=== PATIENT | female | born 1945 | race Caucasian/White ===

== ENCOUNTER → 2017-10-08 | Outpatient (CLI) | payer MEDICARE ==
[~2017-10-08] MED LIST: ASPIRIN325 PO; C-500500 MG PO; CALTRATE PLUS1 EACH PO; CARVEDILOL12.5 MG PO; CIPRO500 MG PO; FLAGYL500 MG PO; KLOR-CON 1010 MEQ PO; LASIX 20 MG TAB20 MG PO; LIORESAL 10 MG10 MG PO; LISINOPRIL10 MG PO; LISINOPRIL40 MG PO; METOPROLOL SUC100 MG PO; MIRALAX17 GM PO; NEURONTIN 300300 M1 PO; PLAVIX 75 MG TA75 M1 PO; PRILOSEC; PRILOSEC OTC20 MG PO; PRILOSEC20 MG PO; SIMVASTATIN20 MG PO; carvedilol
== END ==
LOC: M.ULTRA 08:00
DX: N28.1 Cyst of kidney, acquired (principal); I77.811 Abdominal aortic ectasia; D73.4 Cyst of spleen; K80.80 Other cholelithiasis without obstruction; I25.10 Atherosclerotic heart disease of native coronary artery without angina pectoris; I10 Essential (primary) hypertension; E78.2 Mixed hyperlipidemia; K57.92 Diverticulitis of intestine, part unspecified, without perforation or abscess without bleeding

== ENCOUNTER → 2017-11-29 | Outpatient (CLI) | payer MEDICARE | LOC: M.RAD 11-01 13:30 | DX: M81.0 Age-related osteoporosis without current pathological fracture (principal); I25.10 Atherosclerotic heart disease of native coronary artery without angina pectoris; I10 Essential (primary) hypertension; Z78.0 Asymptomatic menopausal state ==

== ENCOUNTER → 2017-12-15 | Outpatient (CLI) | payer MEDICARE ==
--- NOTE | 2017-12-22 07:59 | PAINCON ---
[address] [address] PAIN MANAGEMENT CONSULTATION Name: KEYANA SALGADO [id number] Admission: 12/15/17 Attend Phys: Tulio Charles Discharge: Date of : 47 Report #: [id number] THIS REPORT FOR: //name// CC: Adriana Lerner REFERRING PHYSICIAN: Adriana Quijano MD, [facility] The patient is a very pleasant 72-year-old female seen in consultation at the request of Dr. Wright for assistance with management of low back pain, right hip and leg. Chronic for greater than a year without antecedent trauma and overuse. The patient does note that she had had prior decompressive laminectomy and fusion at L4-L5 and L5-S1 back in 1996 with excellent improvement in back pain. Pain has begun to recur in the last year. It seems to have gotten worse this past fall with increased activity, but no trauma. Currently, she notes the pain is in the right leg radiating down to the foot. Does have numbness and paresthesia that started in the fall. Again pain has been present for about a year. Denies saddle anesthesia. Denies bowel or bladder continence changes. 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 Pain does seem to be exacerbated with increased activity. She gets some relief with heat and ice and lying recumbent. The patient has tried baclofen with really no efficacy and she discontinued it. She has been taking gabapentin for about 4 years for some chronic paresthesia. Anti-inflammatory medications are relatively contraindicated due to the history of coronary artery disease. She is not on any blood thinners. She notes pain is shooting, aching, intermittent, throbbing and sharp, rates it anywhere from 7-10 on visual analog scale. REVIEW OF SYSTEMS: Complete review of systems is attached to chart and gone over with the patient. She is . She does not smoke or drink alcohol to excess. History of hypertension and treated with carvedilol and lisinopril. Currently on simvastatin, she denies significant elevated cholesterol, simply started on this after her coronary artery disease. She had endovascular stents placed in 1997. Again she was on blood thinners for a period of time, but now she uses only a single daily aspirin. History of hypothyroidism, gastroesophageal reflux and some peripheral neuropathy in the bilateral legs for which she uses gabapentin. Prior surgeries have included the aforementioned lumbar decompressive laminectomy and fusion in 1996, prior hysterectomy in 1976 and some podiatric surgery in 1978. She continues to work cleaning houses. Pain impact score is fairly high, averaging about 52/70. She has some increasing left [place] [address] PAIN MANAGEMENT CONSULTATION Name: NAOMI,KEYANA Jordyn Room: [facility]#: [id number] Admission: 12/15/17 Attend Phys: Tulio Charles Discharge: Date of : 47 Report #: [id number] she uses a Salonpas patch with good efficacy. PHYSICAL EXAMINATION: GENERAL: Reveals a 5 feet 1 inch, 187 pounds female, BMI is 35 kilograms per meter squared. VITAL SIGNS: Blood pressure 148/74, pulse 48 and respirations 16. NEUROLOGIC: Cranial nerves 2-12 are grossly intact. HEENT: Pupils are equal and react to light and accommodation. Extraocular muscles are intact. NECK: Thyroid is unremarkable. Upper extremity strength is generally preserved. Does have some tenderness in the left thoracic paravertebral muscles. HEART: Regular rhythm without murmur. LUNGS: Clear to auscultation. ABDOMEN: Shows endomorphic build. MUSCULOSKELETAL: Rises from chair using armrest. She has a catch in the low back radiating into the right hip. Gait is tandem. Lumbar flexion good to about 90 degrees. No SI joint tenderness is noted. She has pain with right hip flexion. Strength is slightly diminished. Absent right patellar reflex, 2/4 in the left. Lower extremity strength is otherwise symmetric for dorsiflexion, plantar flexion and lower extremity extension. DIAGNOSTIC STUDIES: Include MRI of the lumbar spine from 11/29/2017 noting a 0.6 cm anterolisthesis at L3-L4 with neural foraminal and central spinal stenosis. She does have postoperative surgical changes of laminectomy and fusion at L4-L5 and L5-S1. She does have a component of lumbar spondylosis as well. ASSESSMENT: Symptomatic lumbar radiculopathy by clinical exam and history, status post decompressive laminectomy, symptoms primarily right L3 distribution. RECOMMENDATIONS: 1. Right L3-L4 transforaminal epidural injection. 2. Physical therapy ongoing. 3. Continue Aleve [id number], p.r.n. use is acceptable. We did review overall risk of chronic use of NSAID agents and coronary artery disease and increased risk for heart attack. We did attempt a transforaminal epidural injection; however, unable to get good access due to osseous hypertrophy in this area. We ultimately progressed with a midline lumbar epidural injection under fluoroscopy. PROCEDURE: Midline lumbar epidural injection under fluoroscopy. PROCEDURE NOTE: After both written and informed consent to include risk of spinal cord damage, increased pain, weakness and dural puncture, the patient was [facility] [address] [place] [address] PAIN MANAGEMENT CONSULTATION Name: KEYANA SALGADO Room: [facility]#: [id number] Admission: 12/15/17 Attend Phys: Tulio Charles Discharge: Date of : 46 Report #: [id number] taken to the fluoroscopy suite, placed in the prone position. After sterile prep and drape, a skin wheal with lidocaine was raised. A 22-gauge epidural Tuohy needle was inserted in the midline at L3-L4 with good loss to resistance. Negative aspiration for cerebrospinal fluid or blood was noted. Then 1 mL of Omnipaque under biplanar fluoroscopy showed good spread within the epidural space. This was followed with 80 mg of triamcinolone plus 1 mL of 1.5% preservative-free Xylocaine, 0.5 mL Xylocaine was then injected to flush the needle; it was removed. The patient was monitored for an appropriate period of time and discharged in good and stable condition. <ELECTRONICALLY SIGNED> By: Sandip Lerner DO 12/22/17 0759 1401 [id number] Lerner DO /nt
== END | disposition home or self-care (01) ==
LOC: M.PC 04:52
DX: M54.16 Radiculopathy, lumbar region (principal); G89.29 Other chronic pain; I10 Essential (primary) hypertension; I25.10 Atherosclerotic heart disease of native coronary artery without angina pectoris; E03.9 Hypothyroidism, unspecified; K21.9 Gastro-esophageal reflux disease without esophagitis; F41.8 Other specified anxiety disorders; Z98.890 Other specified postprocedural states; Z90.710 Acquired absence of both cervix and uterus; Z79.82 Long term (current) use of aspirin; Z79.899 Other long term (current) drug therapy

== ENCOUNTER → 2018-01-05 | Outpatient (CLI) | payer MEDICARE ==
--- NOTE | 2018-01-07 09:51 | PAINCON ---
[address] [address] PAIN MANAGEMENT CONSULTATION Name: KEYANA SALGADO [id number] Admission: 01/05/18 Attend Phys: Tulio Charles Discharge: Date of : 46 Report #: [id number] THIS REPORT FOR: //name// CC: Samm Lerner HISTORY OF PRESENT ILLNESS: The patient is a 72-year-old female seen in consultation on 12/15/2017, diagnosed with symptomatic lumbar radiculopathy secondary to spinal stenosis. We proceeded with a single lumbar epidural injection at that time with incremental improvement of baseline pain. The patient notes she had near 100% relief for several weeks with pain began to recur yesterday. She notes pain is in the low back, right hip and leg. She rates pain at 0 on VAS sitting today, but it was up to 10 within the past week. PHYSICAL EXAMINATION: Shows a 72-year-old female, BMI is 36.2 kilograms per meter squared. Blood pressure 150/74, pulse 47, respirations of 18. Rises from chair using armrest. Modestly antalgic gait. Still has slight decreased right hip flexion strength and positive straight leg raise on the right. ASSESSMENT: Symptomatic lumbar radiculopathy by clinical exam and history. RECOMMENDATIONS: Repeat epidural injection under fluoroscopy today. Given the good relief following first injection, we will not make a followup appointment. ASSESSMENT: Symptomatic lumbar radiculopathy. PROCEDURE: Lumbar epidural injection under fluoroscopy. PROCEDURE NOTE: After both written and informed consent to include risk of spinal cord damage, increased pain, weakness and dural puncture, the patient was taken to the fluoroscopy suite, placed in the prone position. After sterile prep and drape, a skin wheal with lidocaine was raised. A 22-gauge epidural Tuohy needle was inserted in the midline at L3-L4 with good loss to resistance. Negative aspiration for cerebrospinal fluid or blood was noted. Then 1 mL of Omnipaque under biplanar fluoroscopy showed good spread within the epidural space. This was followed with 80 mg of triamcinolone plus 1 mL of 1.5% preservative-free Xylocaine, 0.5 mL Xylocaine was then injected to flush the needle; it was removed. The patient was monitored for an appropriate period of time and discharged in good and stable condition. <ELECTRONICALLY SIGNED> By: Sandip Lerner DO 01/07/18 0951 1539 2004Sandip Lerner DO /nt
== END | disposition home or self-care (01) ==
LOC: M.PC 02:28
DX: M54.16 Radiculopathy, lumbar region (principal); M48.061 Spinal stenosis, lumbar region without neurogenic claudication; I10 Essential (primary) hypertension; F41.8 Other specified anxiety disorders; Z79.82 Long term (current) use of aspirin; Z79.899 Other long term (current) drug therapy; Z98.890 Other specified postprocedural states

== ENCOUNTER → 2018-01-26 | Outpatient (CLI) | payer MEDICARE ==
--- NOTE | 2018-01-29 09:57 | PAINCON ---
[facility] [address] [place] [address] PAIN MANAGEMENT CONSULTATION Name: KEYANA SALGADO [id number] Admission: 01/26/18 Attend Phys: Tulio Charles Discharge: Date of : 47 Report #: [id number] THIS REPORT FOR: //name// CC: Samm Lerner The patient is a very pleasant 73-year-old female prior seen in the pain clinic on 01/02/2018. We had done two lumbar epidural injections, initial injection at L4-L5 afforded good relief. Second injection was actually at L3-L4 a little bit above that with less efficacy. She returns to the pain clinic today noting pain continues to be problematic. She rates her pain 8 on a VAS. Pain is low back, right hip and leg. Pain is exacerbated with standing, walking and bending. PHYSICAL EXAMINATION: Unchanged otherwise, 5 feet 1 inch, weight of 186 pounds, BMI 35 kilograms per meter squared. Blood pressure 153/74, pulse 47 and respirations 16. Rises from chair using armrest. Diffuse tenderness across the low back. Lower extremity strength is symmetric. Lumbar flexion is limited. ASSESSMENT: Symptomatic lumbar radiculopathy secondary to spinal stenosis in a patient who has had good relief with two injections and better relief with her first injection. RECOMMENDATIONS: Discussion with the patient today about therapeutic option. We elected to repeat injection today. This will be #3 in a series. We will go back to the lower L4-L5 area. If this did not afford adequate relief, I would consider a caudal injection at next visit. The patient has significant lumbar stenosis and a fair bit of osseous deformity and autofusion in the low back. PROCEDURE: Lumbar epidural injection under fluoroscopy. PROCEDURE NOTE: After both written and informed consent to include risk of spinal cord damage, increased pain, weakness and dural puncture, the patient was taken to the fluoroscopy suite, placed in the prone position. After sterile prep and drape, a skin wheal with lidocaine was raised. A 22-gauge epidural Tuohy needle was inserted in the midline at L4-L5 with good loss to resistance. Negative aspiration for cerebrospinal fluid or blood was noted. Then 1 mL of Omnipaque under biplanar fluoroscopy showed good spread within the epidural space. This was followed with 80 mg of triamcinolone plus 1 mL of 1.5% preservative-free Xylocaine, 0.5 mL Xylocaine was then injected to flush the needle; it was removed. The patient was monitored for an appropriate period of time and discharged in good and stable condition. <ELECTRONICALLY SIGNED> By: Sandip Lerner DO 01/29/18 0957 1202 [id number] Lerner DO /nt
== END | disposition home or self-care (01) ==
LOC: M.PC 02:55
DX: M48.061 Spinal stenosis, lumbar region without neurogenic claudication (principal); G89.29 Other chronic pain; I10 Essential (primary) hypertension; F41.9 Anxiety disorder, unspecified; Z79.899 Other long term (current) drug therapy; Z79.82 Long term (current) use of aspirin; Z98.890 Other specified postprocedural states

== ENCOUNTER → 2019-01-13 | Outpatient (CLI) | payer MEDICARE | LOC: M.RAD 08:50 | DX: Z12.31 Encounter for screening mammogram for malignant neoplasm of breast (principal) ==

== ENCOUNTER → 2020-04-24 | Outpatient (CLI) | payer MEDICARE | LOC: M.RAD 10:30 | PROVIDERS: ATTEND Family Medicine | DX: Z12.31 Encounter for screening mammogram for malignant neoplasm of breast (principal) ==

== ENCOUNTER 2021-04-18 09:20 | Inpatient (IN) | payer OTHER ==
[~2021-04-18] VITALS: Ht 160 cm; Wt 91.4 kg
[~2021-04-18 09:20] MED LIST changes: -NEURONTIN 300300 M1 PO; +NEURONTIN 300M300 M2 PO
[2021-04-18] MEDS ORDERED: ASA81BEC PO (09:26)
[2021-04-18 09:49] LABS: ABSOLUTE EOSINOPHILS 0.1 thou/uL (0.0-0.7); ABSOLUTE LYMPHOCYTES 1.6 thou/uL (0.8-5.3); ABSOLUTE MONOCYTES 0.3 thou/uL (0.0-1.2); ABSOLUTE NEUTROPHILS 3.6 thou/uL (1.6-8.1); BASOPHILS 0.5 %; EOSINOPHILS 1.4 %; HEMOGLOBIN 9.8 gm/dL (12.0-15.0); LYMPHOCYTES 28.1 %; MCH 31.8 pg (26.0-34.0); MCHC 33.9 g/dL (28.0-37.0); MCV 93.7 fL (80.0-100.0); MONOCYTES 5.9 %; NUCLEATED RBCS 0 /100WBC; PLATELET COUNT* 225 thou/uL (150-400); POLYS 64.1 %; RDW-CV 13.4 % (10.5-14.5); WBC 5.7 thou/uL (4.0-11.0)
[2021-04-18 10:01] LABS: CREATININE 0.9 mg/dL (0.6-1.3); POTASSIUM 4.1 mmol/L (3.5-5.1)
[2021-04-18 10:06] LABS: TOTAL BILIRUBIN 0.3 mg/dL (<0.1-1.0); TOTAL PROTEIN 5.9 g/dL (6.4-8.2)
[2021-04-18 13:00] VITALS: BP 152/79
--- NOTE | 2021-04-18 15:56 | EKG ---
[place] [address] ELECTROCARDIOGRAM REPORT Name: KEYANA SALGADO Room: [address] ADM IN .R.#: [id number] Admission: 04/18/21 Attend Phys: Dion Silver, Discharge: Date of : 47 Date of Service: 04/18/21 0925 Report #: [id number] THIS REPORT FOR: //name// [facility] ED Test Date: 2021-04-18 Test Time: 09:25:10 Pat Name: KEYANA SALGADO Department: Room: [facility] Gender: F Regulatory Technician: YVAN : 1945 Requested By: Boy Mane Order Number: [id number] MD: Hubert Puentes Measurements Intervals [place] Rate: 84 P: 43 NC: 173 QRS: -5 QRSD: 98 T: 149 QT: 357 QTc: 422 Interpretive Statements Sinus rhythm Ventricular premature complex Probable left atrial enlargement LVH with secondary repolarization abnormality Compared to ECG 09/30/2017 17:45:36 Ventricular premature complex(es) now present Electronically Signed On 04-18-2021 15:56:15 CDT by Hubert Puentes [email or web address] <ELECTRONICALLY SIGNED> By: Hubert Puentes MD, [facility] 04/18/21 1556 4 4 Hubert Puentes MD, [facility] /EPI
[2021-04-18 16:00] VITALS: BP 100/50
[2021-04-18 16:04] VITALS: BP 154/59
[2021-04-18 18:32] LABS: HEMATOCRIT 25.4 % (37.0-47.0); HEMOGLOBIN 8.5 gm/dL (12.0-15.0); MCH 31.5 pg (26.0-34.0); MCHC 33.6 g/dL (28.0-37.0); MCV 93.7 fL (80.0-100.0); MPV 8.6 fl. (7.2-11.1); RBC 2.71 mil/uL (4.20-5.00); RDW-CV 13.8 % (10.5-14.5); WBC 5.4 thou/uL (4.0-11.0)
[2021-04-18 18:52] LABS: CALCIUM 7.3 mg/dL (8.5-10.1); CREATININE 0.9 mg/dL (0.6-1.3); POTASSIUM 4.3 mmol/L (3.5-5.1)
[2021-04-18 20:00] VITALS: BP 148/65
[2021-04-19 00:42] VITALS: BP 124/54
[2021-04-19 03:51] VITALS: BP 118/51
[2021-04-19 06:22] LABS: ABSOLUTE EOSINOPHILS 0.1 thou/uL (0.0-0.7); ABSOLUTE LYMPHOCYTES 1.7 thou/uL (0.8-5.3); ABSOLUTE MONOCYTES 0.3 thou/uL (0.0-1.2); ABSOLUTE NEUTROPHILS 2.3 thou/uL (1.6-8.1); BASOPHILS 0.4 %; EOSINOPHILS 2.4 %; HEMATOCRIT 23.5 % (37.0-47.0); HEMOGLOBIN 7.9 gm/dL (12.0-15.0); LYMPHOCYTES 38.3 %; MCH 31.7 pg (26.0-34.0); MCHC 33.7 g/dL (28.0-37.0); MCV 93.9 fL (80.0-100.0); MPV 8.8 fl. (7.2-11.1); NUCLEATED RBCS 0 /100WBC; PLATELET COUNT* 172 thou/uL (150-400); POLYS 51.9 %; RDW-CV 13.9 % (10.5-14.5); WBC 4.5 thou/uL (4.0-11.0)
[2021-04-19 06:36] LABS: CALCIUM 7.3 mg/dL (8.5-10.1); CREATININE 0.7 mg/dL (0.6-1.3); POTASSIUM 3.9 mmol/L (3.5-5.1)
--- NOTE | 2021-04-19 06:51 | NUR ---
PT SLEPT WELL OVERNIGHT. UP WITH SBA TO BR TO VOID, NO BM THIS SHIFT. TELE SR WITH PACS, PVCS. LHAND IVF INFUSING PER PUMP , TO BE SL AFTER THIS BAG INFUSED. AM LABS DRAWN. GI FOLLOWING. ABLE TO USE CALL LITE AND MAKE NEEDS KNOWN. BED ALARM ON FOR SAFETY OVERNIGHT.
[2021-04-19 08:15] VITALS: BP 110/45
[2021-04-19 11:12] VITALS: BP 111/46
--- NOTE | 2021-04-19 13:23 | CON ---
[place] [address] CONSULTATION Name: KEYANA SALGADO Room: [address] IN M.R.#: [id number] Admission: 04/18/21 Attend Phys: Dion Silver MD Discharge: Date of : 47 Report #: [id number] THIS REPORT FOR: cc: Samm Wright MD, Tuongvan T. MD Vardakis, Gregory DO ~ cc: Samm Wright MD, Dion Silver, Hubert Puentes MD [facility] DATE OF CONSULTATION: 04/18/2021 REFERRING PHYSICIAN: Dion Silver MD REASON FOR CONSULTATION: Dark tarry stools and weakness. HISTORY OF PRESENT ILLNESS: The patient is a pleasant 76-year-old white female with underlying coronary artery disease and hypertension who presented to the hospital with complaints of dark tarry stools over the last 3-4 days with associated lightheadedness, dizziness and weakness. She states she has been feeling poorly for the last month or so with just generalized fatigue, but ____[TIME: 00:39] he had been severe. She denies any complaints of any chest discomfort or chest pain. She has had problems with shortness of breath and exercise intolerance. She states that she has had some dark tarry stools over the last 3 or 4 days and without complaints of any upper or lower GI tract complaints. She denies dysphagia, odynophagia, chronic reflux or postprandial pain. She has not been taking any nonsteroidals. She takes half of a full dose aspirin once daily for her heart disease. She states she recently started on some medication to help with her right knee pain and controlled substance, not a nonsteroidal. She does not know the name of the medication, but he thinks that the name began with B. She has never had any problems related to her upper or lower GI tract in the past. She has undergone colonoscopies in the past with last one being done about 5 years ago. She states she has had a history of remote diverticulitis, but no history of colon polyps or colon cancer. Her weight has been stable. She is admitted to the hospital for further evaluation and treatment. ALLERGIES: None. MEDICATIONS: Include lisinopril, Coreg, aspirin, simvastatin, gabapentin, baclofen, Caltrate, ascorbic acid and p.r.n. MiraLax. She takes half of a full dose aspirin. PAST MEDICAL HISTORY: Hypertension, coronary artery disease, previous stents in the remote past. She states she has been followed up with Dr. Puentes in the last several months. She is happy with how she is doing. She denies any recurrence of heart disease. She has some problems [place] [address] CONSULTATION Name: KEYANA SALGADO Room: [address] IN [facility]#: [id number] Admission: 04/18/21 Attend Phys: Dion Silver MD Discharge: Date of : 47 Report #: [id number] with lower leg pain. She has history of hyperlipidemia. She had previous hysterectomy for endometriosis. She had back surgery for spinal stenosis. SOCIAL HISTORY: The patient is a former smoker. She quit more than a couple years ago. She does not drink any alcohol. FAMILY HISTORY: Negative. PHYSICAL EXAMINATION: GENERAL: Pleasant 76-year-old white female who is pale. CARDIOPULMONARY: Revealed a regular rate and rhythm. LUNGS: Clear. ABDOMEN: Soft and nontender. No rebound or guarding noted. LABORATORY TESTS: From admission revealed a white count of 5.7; hemoglobin 9.8; platelet count 225,000; MCV is 93.7 and RDW is 13.4. Differential is normal. Her complete metabolic panel revealed a sodium of 145, potassium 4.1, chloride 111, bicarb 30. Her BUN is 27 and creatinine is 0.9. Her GFR is 61. Total bilirubin 0.3, alkaline phosphatase is 61, AST is 10, ALT 18, albumin is 3.0. Troponin was negative. CT scan of the abdomen and pelvis with angiogram revealed calcified gallstones noted within the gallbladder and this has been noted for quite some time without any complaints to suggest biliary tract issues. The remainder of the examination was unremarkable other than diverticular disease within the sigmoid colon without evidence for diverticulitis. There was no contrast extravasation or any active GI bleeding. DISCUSSION: At the present time, the patient has some dark tarry stools. We will start by doing an upper endoscopy today and make further recommendations thereafter. I discussed these plans with the patient as well and she is agreeable to the same. <ELECTRONICALLY SIGNED> By: Urban Mathur DO 04/19/21 1323 0843 [id number] Mathur DO /nt
[2021-04-19 16:53] VITALS: BP 143/67
[2021-04-19 18:14] LABS: HEMATOCRIT 29.2 % (37.0-47.0)
[2021-04-19 20:35] VITALS: BP 139/51
[2021-04-20] VITALS (8 sets, daily range): BP systolic 118–165; BP diastolic 51–77
[2021-04-20 05:12] LABS: ABSOLUTE EOSINOPHILS 0.2 thou/uL (0.0-0.7); ABSOLUTE LYMPHOCYTES 1.6 thou/uL (0.8-5.3); ABSOLUTE MONOCYTES 0.4 thou/uL (0.0-1.2); ABSOLUTE NEUTROPHILS 2.8 thou/uL (1.6-8.1); BASOPHILS 0.6 %; EOSINOPHILS 3.4 %; HEMATOCRIT 24.5 % (37.0-47.0); HEMOGLOBIN 8.4 gm/dL (12.0-15.0); LYMPHOCYTES 32.8 %; MCH 32.1 pg (26.0-34.0); MCHC 34.2 g/dL (28.0-37.0); MCV 93.9 fL (80.0-100.0); MONOCYTES 7.6 %; MPV 8.7 fl. (7.2-11.1); NUCLEATED RBCS 0 /100WBC; PLATELET COUNT* 188 thou/uL (150-400); POLYS 55.6 %; RBC 2.61 mil/uL (4.20-5.00); RDW-CV 14.1 % (10.5-14.5)
[2021-04-20 05:19] LABS: ALBUMIN 2.7 g/dL (3.4-5.0); CALCIUM 7.4 mg/dL (8.5-10.1); CREATININE 0.7 mg/dL (0.6-1.3); POTASSIUM 3.9 mmol/L (3.5-5.1); TOTAL BILIRUBIN 0.3 mg/dL (<0.1-1.0); TOTAL PROTEIN 5.2 g/dL (6.4-8.2)
--- NOTE | 2021-04-20 05:53 | NUR ---
PT HAS BEEN NPO SINCE MIDNIGHT. UP INDEP TO BR TO VOID AND HAVE BM, LAST BM THIS MORNING I OBSERVED WAS YELLOW LIQUID WITH SMALL AMOUNT SEDIMENT NOTED IN TOILET. DULCOLAX TABS GIVEN THIS MORNING. AOX4, ABLE TO USE CALL LITE AND MAKE NEEDS KNOWN. JOEL BERKOWITZ IV. TO HAVE COLONSCOPY TODAY. NO N/V THIS SHIFT. ROOM AIR. TELE SR PVC'S.
[2021-04-21 04:00] VITALS: BP 145/73
[2021-04-21 04:15] LABS: ABSOLUTE EOSINOPHILS 0.1 thou/uL (0.0-0.7); ABSOLUTE LYMPHOCYTES 1.5 thou/uL (0.8-5.3); ABSOLUTE MONOCYTES 0.4 thou/uL (0.0-1.2); ABSOLUTE NEUTROPHILS 3.7 thou/uL (1.6-8.1); BASOPHILS 0.5 %; HEMATOCRIT 22.7 % (37.0-47.0); LYMPHOCYTES 25.9 %; MCH 32.7 pg (26.0-34.0); MCHC 35.1 g/dL (28.0-37.0); MONOCYTES 7.3 %; MPV 8.5 fl. (7.2-11.1); NUCLEATED RBCS 0 /100WBC; PLATELET COUNT* 178 thou/uL (150-400); POLYS 64.3 %; RBC 2.44 mil/uL (4.20-5.00); RDW-CV 13.4 % (10.5-14.5); WBC 5.7 thou/uL (4.0-11.0)
[2021-04-21 04:37] LABS: CALCIUM 7.5 mg/dL (8.5-10.1); CREATININE 0.8 mg/dL (0.6-1.3); POTASSIUM 3.7 mmol/L (3.5-5.1)
--- NOTE | 2021-04-21 05:50 | NUR ---
PT SLEPT MOST OF SHIFT. ASSESSMENT DOCUMENTED. MEDS GIVEN PER E-MAR. IV PATENT. PT REPORTED GRIMES, TYLENOL GIVEN. PT ABLE TO MAKE NEEDS KNOWN. WILL CONTINUE WITH PLAN OF CARE.
[2021-04-21 08:00] VITALS: BP 152/56
[2021-04-21 12:00] VITALS: BP 149/79
[2021-04-21] MEDS ORDERED: FERROUS FUMARA324 MG PO (12:29)
[2021-04-21] MEDS ORDERED: PROTONIX40 M2 PO (12:34)
[2021-04-21 14:10] VITALS: BP 149/79
--- NOTE | 2021-04-23 11:11 | PATH ---
[address] [address] PATHOLOGY RPT PROCEDURE Name: RASHIKEYANA Room: [address] IN .R.#: [id number] Admission: 04/18/21 Date of : 47 Discharge: 04/21/21 Report #: [id number] Path Case #: [id number] [facility] Accession Number: [id number] . 01 Material submitted: . colon - PROXIMAL ASCENDING COLON POLYP-HOT SNARE. Modifiers: proximal, ascending . 01 Clinical history: . GI BLEED COLONOSCOPY . 02 Diagnosis: Proximal ascending colon polyp (hot snare): - Tubular adenoma, negative for high-grade dysplasia. ([place]:[facility]eli; 04/22/2021) QMS 04/22/2021 1413 Local . 02 Electronically signed: . Mac Nascimento MD, Pathologist NPI- [id number] . 01 Gross description: . The specimen is received in formalin, labeled "Rashi Keyana, proximal ascending colon polyp". Received is a single segment of pale slaughter tissue measuring 0.3 cm in maximum dimensions. The specimen is submitted entirely in cassette A1. ([facility]; 04/21/2021) NRI/NRI 04/21/2021 1634 Local . 02 Pathologist provided ICD-10: D12.2 . 02 CPT . 690283 Specimen Comment: A courtesy copy of this report has been sent to [phone] Specimen Comment: [phone], Specimen Comment: Report sent to , DR MULLER / DR GILL Performed at: [address], [place] [id number] MD Davy Douglas MD Phone: [phone] Performed at: [address] [facility] [address] [address], [place] [id number] MD Mac Nascimento MD Phone: [phone]
== END 2021-04-21 14:45 | disposition home or self-care (01) | DRG 378 ==
LOC: M.ERS 09:20 → M.TBA-ER 10:28 → M.2W 10:28
PROVIDERS: Family Medicine; Internal Medicine Gastroenterology; ADMIT Internal Medicine; ATTEND Internal Medicine
PROC: 0DJ08ZZ Inspection of Upper Intestinal Tract, Via Natural or Artificial Opening Endoscopic (ICD-10-PCS; principal; 2021-04-18)
PROC: 0DBK8ZZ Excision of Ascending Colon, Via Natural or Artificial Opening Endoscopic (ICD-10-PCS; 2021-04-20)
DX: K25.4 Chronic or unspecified gastric ulcer with hemorrhage (principal); D62 Acute posthemorrhagic anemia; K57.31 Diverticulosis of large intestine without perforation or abscess with bleeding; I25.10 Atherosclerotic heart disease of native coronary artery without angina pectoris; M19.90 Unspecified osteoarthritis, unspecified site; I10 Essential (primary) hypertension; K64.4 Residual hemorrhoidal skin tags; K44.9 Diaphragmatic hernia without obstruction or gangrene; K63.5 Polyp of colon; G62.9 Polyneuropathy, unspecified; Z20.822 Contact with and (suspected) exposure to COVID-19; Z90.710 Acquired absence of both cervix and uterus; I25.2 Old myocardial infarction; Z95.5 Presence of coronary angioplasty implant and graft; Z79.82 Long term (current) use of aspirin; Z79.899 Other long term (current) drug therapy

== ENCOUNTER → 2021-05-28 | Outpatient (CLI) | payer OTHER ==
[~2021-05-28] MED LIST changes: +ASA81BEC PO; +FERROUS FUMARA324 MG PO; +PROTONIX40 M2 PO
== END ==
LOC: M.RAD 10:45
PROVIDERS: ATTEND Family Medicine
DX: Z12.31 Encounter for screening mammogram for malignant neoplasm of breast (principal)